=== PATIENT | female | born 1995 | race Caucasian/White ===

== ENCOUNTER 2021-02-12 14:33 | Emergency (ER) | payer BC ==
[~2021-02-12] VITALS: Ht 172.7 cm; Wt 152.4 kg
== END 2021-02-12 17:49 | disposition home or self-care (01) ==
LOC: ER1 14:33
DX: Z23 Encounter for immunization (principal); U07.1 COVID-19; I10 Essential (primary) hypertension; Z88.2 Allergy status to sulfonamides
CPT/HCPCS: 99283; M0243